=== PATIENT | male | born 1955 | race Caucasian/White ===

== ENCOUNTER 2018-10-26 11:33 | Day surgery (SDC) | payer MEDICARE, OTHER ==
[~2018-10-26] VITALS: Ht 182.9 cm; Wt 79.7 kg
[~2018-10-26 11:33] MED LIST: ALBU90OI INH; ASPI81CH; BACL10; IBUP800 PO; ROFE25; SIMV10 PO; TIOT18 IH; TRAM50; TRAZ50
[2018-10-26] MEDS ORDERED: HYDHCL25 PO (12:59)
[2018-10-26] MEDS ORDERED: OLAN2.5 PO (13:00)
[2018-10-26] MEDS ORDERED: ZESTORETIC 20-121 EA PO (13:01)
--- NOTE | 2018-10-26 13:39 | NUR ---
10/26/18 [id number] Estella Mena PT UP TO RESTROOM WITH SBA. PT IN BED, RESTING COMFORTABLY WITH CALL-LIGHT WITHIN REACH. DENIES NEEDS AT THIS TIME. DENIES OFFER TO BRING FAMILY BACK. NOTIFIED OF DELAY.
== END 2018-10-26 14:53 | disposition home or self-care (01) ==
LOC: ORSCSDS 11:33
PROVIDERS: Internal Medicine Gastroenterology
PROC: 0DJD8ZZ Inspection of Lower Intestinal Tract, Via Natural or Artificial Opening Endoscopic (ICD-10-PCS; principal; 2018-10-26 13:00)
DX: D64.9 Anemia, unspecified (principal); K64.8 Other hemorrhoids; K57.30 Diverticulosis of large intestine without perforation or abscess without bleeding; J44.9 Chronic obstructive pulmonary disease, unspecified; E78.5 Hyperlipidemia, unspecified; Z87.891 Personal history of nicotine dependence; Z79.899 Other long term (current) drug therapy
CPT/HCPCS: J2704; J7120

== ENCOUNTER 2020-06-18 15:16 | Emergency (ER) | payer OTHER ==
[~2020-06-18] VITALS: Ht 182.9 cm; Wt 86.2 kg
[~2020-06-18 15:16] MED LIST changes: -ALBU90OI INH; -BACL10; -SIMV10 PO; -TIOT18 IH
[2020-06-18] MEDS ORDERED: CELE100 PO (15:30)
== END 2020-06-18 17:24 | disposition home or self-care (01) ==
LOC: ER 15:16
DX: M54.2 Cervicalgia (principal); M54.5 Low back pain; J44.9 Chronic obstructive pulmonary disease, unspecified; Z91.030 Bee allergy status; Z79.82 Long term (current) use of aspirin; Z79.899 Other long term (current) drug therapy; V49.40XA Driver injured in collision with unspecified motor vehicles in traffic accident, initial encounter
CPT/HCPCS: 36415; 99284

== ENCOUNTER 2020-09-20 10:39 | Inpatient (IN) | payer MEDICARE, OTHER ==
[~2020-09-20] VITALS: Ht 182.9 cm; Wt 82.5 kg
[~2020-09-20 10:39] MED LIST changes: +CELE100 PO
[2020-09-20 11:30] LABS: Troponin I <0.015 ng/mL (0.000-0.040)
[2020-09-20 11:50] LABS: Alanine Aminotransfer (ALT/SGP 96 U/L (12-78); Albumin, Blood 3.5 g/dL (3.4-5.0); Albumin/Globulin Ratio 1.1 (0.8-1.8); Alk Phos 69 U/L (50-136); Aspartate Aminotrans (AST/SGOT 120 U/L (12-37); Bilirubin, Total 1.2 mg/dL (0.1-1.0); Blood Urea Nitrogen 23 mg/dL (8-24); Bun/Creatinine Ratio 30.8 (12.0-20.0); CO2, Blood 26 mmol/L (21-32); Calcium, Blood 8.5 mg/dL (8.5-10.1); Chloride, Blood 75 mmol/L (98-108); Creatinine, Blood 0.75 mg/dL (0.60-1.20); Globulin, Blood 3.1 g/dL (2.2-4.0); Glomerular Filtration Rate >60 (60-); Glucose, Blood 107 mg/dL (70-99); Potassium, Blood 3.3 mmol/L (3.5-5.5); Total Protein, Blood 6.6 g/dL (6.4-8.2)
[2020-09-20 11:52] LABS: Anion Gap 9 mmol/L (6-16); Sodium, Blood 110 mmol/L (136-145)
[2020-09-20 12:36] LABS: BASOPHILS ABSOLUTE AUTO 0.03 K/mm3 (0.00-0.23); BASOPHILS PERCENT AUTO 0 % (0-2); EOSINOPHILS ABSOLUTE AUTO 0.05 K/mm3 (0.00-0.68); EOSINOPHILS PERCENT AUTO 0 % (0-6); Hematocrit 35.4 % (37.0-53.0); Hemoglobin 13.2 g/dL (13.5-17.5); IMMATURE GRAN ABSOLUTE AUTO 0.12 K/mm3 (0.00-0.10); IMMATURE GRAN PERCENT AUTO 1 % (0-1); LYMPHOCYTES ABSOLUTE AUTO 1.13 K/mm3 (0.84-5.20); LYMPHOCYTES PERCENT AUTO 7 % (21-46); MONOCYTES ABSOLUTE AUTO 1.88 K/mm3 (0.16-1.47); MONOCYTES PERCENT AUTO 11 % (4-13); Mean Corpuscular HGB 31.1 pg (26.0-34.0); Mean Corpuscular Volume 84 fL (80-100); Mean Platelet Volume 12.9 fL (9.1-12.4); NEUTROPHILS ABSOLUTE AUTO 14.13 K/mm3 (1.96-9.15); NEUTROPHILS PERCENT AUTO 82 % (41-73); Platelet Count 244 K/mm3 (150-400); RDW Coefficient Variation 11.9 % (11.7-14.2); RDW Standard Deviation 35.7 fL (35.1-46.3); Red Blood Cell Count 4.24 M/mm3 (4.30-5.90); White Blood Cell Count 17.34 K/mm3 (4.00-11.30)
[2020-09-20 12:38] LABS: Mean Corpuscular HGB Conc 37.3 g/dL (31.5-36.5)
[2020-09-20] MEDS ORDERED: BACL10 PO (13:47)
[2020-09-20] MEDS ORDERED: HYDHCL25 PO (13:48)
[2020-09-20] MEDS ORDERED: FLUT.05NI (13:48)
[2020-09-20] MEDS ORDERED: SPIRIVA RESPIMAT4 G3 INH (13:49)
[2020-09-20] MEDS ORDERED: ALBU90OI INH (13:49)
[2020-09-20] MEDS ORDERED: AMIT50 PO (13:50)
[2020-09-20] MEDS ORDERED: ZESTORETIC 20-251 EA PO (13:50)
[2020-09-20] MEDS ORDERED: MIRT15 PO (13:51)
[2020-09-20] MEDS ORDERED: MONT10T PO (13:51)
[2020-09-20] MEDS ORDERED: OLANZAPINE PO (13:52)
[2020-09-20] MEDS ORDERED: SIMV10 PO (13:52)
[2020-09-20] MEDS ORDERED: VITAMIN D31000 UNI1 PO (14:25)
[2020-09-20] MEDS ORDERED: FERSU300 PO (14:25)
--- NOTE | 2020-09-20 18:34 | NUR ---
SHIFT SUMMARY PT ADMITTED TO UNIT FROM ED AT 1515 THIS SHIFT. RECEIVED REPORT FROM RHYS GRAJEDA. PT A&OX4, ABLE TO MAKE NEEDS KNOWN. PLEASANT AND COOPERATIVE TO CARE. NO C/O PAIN OR ANY DISCOMFORT UPON ADMISSION. DENIES CP, SOB, OR N&V. TELE SR AT 68 BPM. RESPS E/U IN RA. PT'S SPOUSE AT BEDSIDE THIS AFTERNOON. PT ON A FULL LIQUID DIET, TOLERATING CURRENT DIET WELL. BED AT LOWEST POSITION. CALL LIGHT WITHIN REACH.
--- NOTE | 2020-09-20 19:29 | NUR ---
PT AWAKE AT NURSING CHANGE OF SHIFT ROUNDS. IVF OF NS WITH 20mEq KCL INFUSING AT 75 ML/HR. DENIES PAIN. CALL LIGHT IN REACH
[2020-09-20 21:59] LABS: Anion Gap 7 mmol/L (6-16); Blood Urea Nitrogen 20 mg/dL (8-24); CO2, Blood 29 mmol/L (21-32); Calcium, Blood 8.2 mg/dL (8.5-10.1); Chloride, Blood 78 mmol/L (98-108); Glomerular Filtration Rate >60 (60-); Glucose, Blood 79 mg/dL (70-99); Potassium, Blood 3.6 mmol/L (3.5-5.5); Sodium, Blood 114 mmol/L (136-145)
--- NOTE | 2020-09-21 05:31 | NUR ---
[facility] OPERATOR SUMMARY HAS BEEN RSTING QUIETLY WITH FEW INTERRUPTIONS SINCE HS WITH IVF OF NS WITH KCL INFUSING AT 75 ML/HR. NA+ STILL LOW, BUT WILL HAVE REDRAW TO SEE IF IVF HAS HELPED. LOW BACK PAIN CONTINUES - SEE MAR FOR MEDICATION DETAILS. CALL LIGHT IN REACH. MED [employer] SINUS RHYTHM IN THE S.
[2020-09-21 05:34] LABS: BASOPHILS ABSOLUTE AUTO 0.04 K/mm3 (0.00-0.23); BASOPHILS PERCENT AUTO 0 % (0-2); EOSINOPHILS ABSOLUTE AUTO 0.13 K/mm3 (0.00-0.68); EOSINOPHILS PERCENT AUTO 1 % (0-6); Hematocrit 35.1 % (37.0-53.0); Hemoglobin 13.1 g/dL (13.5-17.5); IMMATURE GRAN ABSOLUTE AUTO 0.04 K/mm3 (0.00-0.10); IMMATURE GRAN PERCENT AUTO 0 % (0-1); LYMPHOCYTES ABSOLUTE AUTO 1.84 K/mm3 (0.84-5.20); LYMPHOCYTES PERCENT AUTO 16 % (21-46); MONOCYTES ABSOLUTE AUTO 1.54 K/mm3 (0.16-1.47); MONOCYTES PERCENT AUTO 14 % (4-13); Mean Corpuscular HGB 31.2 pg (26.0-34.0); Mean Corpuscular HGB Conc 37.3 g/dL (31.5-36.5); Mean Corpuscular Volume 84 fL (80-100); Mean Platelet Volume 12.5 fL (9.1-12.4); NEUTROPHILS ABSOLUTE AUTO 7.77 K/mm3 (1.96-9.15); NEUTROPHILS PERCENT AUTO 68 % (41-73); Platelet Count 265 K/mm3 (150-400); RDW Coefficient Variation 11.8 % (11.7-14.2); RDW Standard Deviation 35.8 fL (35.1-46.3); White Blood Cell Count 11.36 K/mm3 (4.00-11.30)
[2020-09-21 05:56] LABS: Alanine Aminotransfer (ALT/SGP 85 U/L (12-78); Albumin, Blood 3.3 g/dL (3.4-5.0); Albumin/Globulin Ratio 1.2 (0.8-1.8); Alk Phos 65 U/L (50-136); Anion Gap 8 mmol/L (6-16); Aspartate Aminotrans (AST/SGOT 81 U/L (12-37); Bilirubin, Total 0.7 mg/dL (0.1-1.0); Blood Urea Nitrogen 15 mg/dL (8-24); Bun/Creatinine Ratio 19.8 (12.0-20.0); CO2, Blood 27 mmol/L (21-32); Calcium, Blood 8.3 mg/dL (8.5-10.1); Chloride, Blood 86 mmol/L (98-108); Creatinine, Blood 0.76 mg/dL (0.60-1.20); Globulin, Blood 2.8 g/dL (2.2-4.0); Glomerular Filtration Rate >60 (60-); Glucose, Blood 90 mg/dL (70-99); Potassium, Blood 3.4 mmol/L (3.5-5.5); Sodium, Blood 121 mmol/L (136-145); Total Protein, Blood 6.1 g/dL (6.4-8.2)
--- NOTE | 2020-09-21 17:16 | NUR ---
SHIFT SUMMARY PATIENT ALERT AND ORIENTED THIS SHIFT. PATIENT REMAINS IN BED THROUGHOUT THIS SHIFT. PATIENT REMAINS ON IV FLUIDS FOR SODIUM REPLACEMENT. NO ACUTE CHANGES THIS SHIFT. PATIENT'S SPOUSE IN THE ROOM VISITING THIS AFTERNOON. PATIENT MEDICATED 1X FOR PAIN IN LOWER BACK THIS AFTERNOON. PATIENT CURRENTLY SITTING UP IN BED WATCHING TELEVISION, VISITING WITH SPOUSE.
--- NOTE | 2020-09-21 19:27 | NUR ---
AWAKE. DISCUSSED SODIUM LEVEL. IVF OF NS WITH 20mEq KCL INFUSING AT 75 ML/HR. CALL LIGHT IN REACH
--- NOTE | 2020-09-21 20:57 | NUR ---
RETURNED FROM RADIOLOGY/CT SCAN OF CHEST. VOICED HAS "GAS" AND THE SIMETHICONE WASNT WORKING. VOIP NETWORK TECHNICIAN NOTIFIED AND MAALOX ORDERED.
--- NOTE | 2020-09-21 21:49 | NUR ---
IV SITE FLUSHED AFTER REINFIRCEMENT. INFUSING WITH OUT NOTED PROBLEMS
--- NOTE | 2020-09-22 03:33 | NUR ---
[facility] SUMMARY HAD CT OF CHEST BEFORE HS, THEN TOOK A SHOWER. IVF OF NS WITH KCL INFUSING AT 75 ML/HR, AWAITING LAB DRAW LATER FOR SODIUM LEVEL. HAS BEEN RESTING QUIETLY WTIN FEW INTERRUPTIONS SINCE HS. CALL LIGHT IN REACH.
[2020-09-22 05:14] LABS: BASOPHILS ABSOLUTE AUTO 0.09 K/mm3 (0.00-0.23); BASOPHILS PERCENT AUTO 1 % (0-2); EOSINOPHILS ABSOLUTE AUTO 0.17 K/mm3 (0.00-0.68); EOSINOPHILS PERCENT AUTO 1 % (0-6); Hemoglobin 13.4 g/dL (13.5-17.5); IMMATURE GRAN ABSOLUTE AUTO 0.07 K/mm3 (0.00-0.10); IMMATURE GRAN PERCENT AUTO 1 % (0-1); LYMPHOCYTES ABSOLUTE AUTO 2.37 K/mm3 (0.84-5.20); LYMPHOCYTES PERCENT AUTO 17 % (21-46); MONOCYTES ABSOLUTE AUTO 1.52 K/mm3 (0.16-1.47); MONOCYTES PERCENT AUTO 11 % (4-13); Mean Corpuscular HGB 31.3 pg (26.0-34.0); Mean Corpuscular HGB Conc 36.2 g/dL (31.5-36.5); Mean Corpuscular Volume 86 fL (80-100); NEUTROPHILS ABSOLUTE AUTO 9.43 K/mm3 (1.96-9.15); NEUTROPHILS PERCENT AUTO 69 % (41-73); Platelet Count 264 K/mm3 (150-400); RDW Coefficient Variation 12.2 % (11.7-14.2); RDW Standard Deviation 38.5 fL (35.1-46.3); Red Blood Cell Count 4.28 M/mm3 (4.30-5.90); White Blood Cell Count 13.65 K/mm3 (4.00-11.30)
[2020-09-22 05:38] LABS: Alanine Aminotransfer (ALT/SGP 80 U/L (12-78); Albumin, Blood 3.4 g/dL (3.4-5.0); Albumin/Globulin Ratio 1.2 (0.8-1.8); Alk Phos 64 U/L (50-136); Anion Gap 6 mmol/L (6-16); Aspartate Aminotrans (AST/SGOT 54 U/L (12-37); Bilirubin, Total 0.4 mg/dL (0.1-1.0); Blood Urea Nitrogen 11 mg/dL (8-24); Bun/Creatinine Ratio 13.7 (12.0-20.0); CO2, Blood 27 mmol/L (21-32); Calcium, Blood 8.6 mg/dL (8.5-10.1); Chloride, Blood 97 mmol/L (98-108); Globulin, Blood 2.9 g/dL (2.2-4.0); Glomerular Filtration Rate >60 (60-); Glucose, Blood 82 mg/dL (70-99); Potassium, Blood 3.7 mmol/L (3.5-5.5); Sodium, Blood 130 mmol/L (136-145); Total Protein, Blood 6.3 g/dL (6.4-8.2)
--- NOTE | 2020-09-22 06:21 | NUR ---
SODIUM LEVEL THIS AM 130, UP FROM YESTERDAY LEVEL OF 124. DISCUSSED THIS WITH PT. ASYMPTOMATIC. IVF OF NS WITH KCL CONTINUES TO INFUSE AT 75 ML/HR. CALL LIGHT IN REACH
[2020-09-22] MEDS ORDERED: LISI20 PO (13:16)
--- NOTE | 2020-09-22 16:24 | NUR ---
PT DISCHARGED FROM THE UNIT. IV REMOVED. MEDICATIONS FAXED TO [facility] . PT LEFT WITH .
== END 2020-09-22 14:25 | disposition home or self-care (01) | DRG 645 ==
LOC: ER 10:39 → MEDS 13:44
PROVIDERS: Emergency Medicine; Internal Medicine; Nurse Practitioner Acute Care; ADMIT Internal Medicine
DX: E22.2 Syndrome of inappropriate secretion of antidiuretic hormone (principal); T50.2X5A Adverse effect of carbonic-anhydrase inhibitors, benzothiadiazides and other diuretics, initial encounter; R79.89 Other specified abnormal findings of blood chemistry; J92.9 Pleural plaque without asbestos; R91.8 Other nonspecific abnormal finding of lung field; I10 Essential (primary) hypertension; J44.9 Chronic obstructive pulmonary disease, unspecified; G47.30 Sleep apnea, unspecified; D64.9 Anemia, unspecified; D72.829 Elevated white blood cell count, unspecified; M19.90 Unspecified osteoarthritis, unspecified site; E78.5 Hyperlipidemia, unspecified; G89.29 Other chronic pain; M54.9 Dorsalgia, unspecified; F41.9 Anxiety disorder, unspecified; F10.11 Alcohol abuse, in remission; F32.9 Major depressive disorder, single episode, unspecified; Z87.891 Personal history of nicotine dependence; Z79.899 Other long term (current) drug therapy
CPT/HCPCS: 36415; 71046; 71250; 80048; 80053; 83690; 84295; 84484; 85025; 93005; 93010; 94640; 94664; 94760; 99285-25; A9270; J1650; J3480

== ENCOUNTER → 2020-10-09 | Outpatient (CLI) | payer MEDICARE, OTHER ==
[~2020-10-09] MED LIST changes: +ALBU90OI INH; +AMIT50 PO; +BACL10 PO; +FERSU300 PO; +FLUT.05NI; +HYDHCL25 PO; +LISI20 PO; +MIRT15 PO; +MONT10T PO; +OLANZAPINE PO; +SIMV10 PO; +SPIRIVA RESPIMAT4 G3 INH; +VITAMIN D31000 UNI1 PO; +ZESTORETIC 20-251 EA PO
[2020-10-09 14:16] LABS: Osmolality, Urine 324 mos/kg (15-1400)
[2020-10-09 14:37] LABS: Sodium, Urine, Random 84 mmol/L (20-110)
== END | disposition home or self-care (01) ==
LOC: LAB 02:15 → LAB SHORT 02:15
PROVIDERS: Nurse Practitioner Family
DX: E87.1 Hypo-osmolality and hyponatremia (principal)
CPT/HCPCS: 83935; 84300